=== PATIENT | female | born 1990 | race Caucasian/White ===

== ENCOUNTER → 2016-10-27 | Outpatient (CLI) | payer OTHER ==
[~2016-10-27] MED LIST: CALCIUM CARBONAT1 GM PO; CIPRO250 M1 PO; CLARITIN10 M3 PO; CYANOCOBAL1000 MCG/1; DIAMOX SEQUELS500 MG PO; EC-NAPROSYN500 MG PO; FOLTRATE TABLE1 EACH PO; HYDROCODONE-APA1 T58 PO; KCL PO; MACROBID100 M1 PO; NUVARING V1 VAG.RING VG; PYRIDIUM100 MG PO; YASMIN 28 TABLE1 TAB PO; ZYRTEC10 M2 PO; ZZZQUIL25 MG PO
--- NOTE | ~2016-10-27 | MR189 ---
[facility] A Service of [facility] & [facility] RADIOLOGY TEXT RESULTS PATIENT: ISAURA MOSER LOCATION: [facility] : 90 UNIT #: [id number] AGE: [address]: LIZBETH LOMBARDO APRN SEX: F ORDER DR: [id number] [facility] [address] [place], [place] [address] [id number] O MR#: [id number] Acc #: [id number] NAME: ISAURA MOSER : 1990 SEX: F STUDY DATE/TIME: 10/27/2016 18:44 UNIT: [facility] ROOM: STUDY DESCRIPTION: MRV Head Wo Contrast Attending Physician: Lizbeth Lombardo Aprn Referring Physician: Lizbeth Lombardo Aprn Ordering Physician: Lizbeth Lombardo Aprn Primary Care Physician: Josh Sands M.D. MRI CENTER REPORT This report is preliminary unless electronic signature is present. EXAM MR venogram of the head without contrast dated 10/27/2016. COMPARISON MR venogram head without contrast dated 09/18/2014. HISTORY Daily headache since May 2015 with pressure behind the eyes. Patient was diagnosed with pseudotumor cerebri in August 2015. When she gets her headaches, she loses vision. Recently the vision problem has improved. She still has her headaches. FINDINGS Source and 3-D reconstruction MIP images of the dural venous sinuses were performed as per the protocol. There is decreased flow noted in focal short segments of the left transverse and left sigmoid sinus along the mid aspect. There is still flow without complete occlusion of the sinuses. It has not worsened in the interval. The right transverse and right sigmoid sinuses are asymmetrically larger with a more prominent right internal jugular vein when compared to the left. 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 The superior sagittal sinus, straight sinus, and torcula heterophile are patent. IMPRESSION 1. No significant interval worsening. 2. There appears to be some decrease in caliber of portions of the left transverse and sigmoid sinuses in the mid aspect, stable. 3. No evidence of acute sinus thrombosis. Dictated by... [facility] A Service of [facility] & [facility] RADIOLOGY TEXT RESULTS PATIENT: ISAURA MOSER LOCATION: [facility] : 90 UNIT #: [id number] AGE: [address]: LIZBETH LOMBARDO APRN SEX: F ORDER DR: Troy France M.D. THIS IS AN ELECTRONICALLY VERIFIED REPORT Troy France M.D. at 11/02/2016 5:26 PM CPR/tmw TD: 10/31/2016 15:48 JOB #: [id number] MRI CENTER REPORT Page 1 of 1 COPY
== END | disposition home or self-care (01) ==
LOC: CMRI 17:53
DX: G93.2 Benign intracranial hypertension (principal)
CPT/HCPCS: 70544